=== PATIENT | female | born 1970 ===

== ENCOUNTER 2017-02-06 12:52 | Emergency (ER) | payer BC ==
[2017-02-06 13:42] VITALS: BP 140/75
--- NOTE | 2017-02-06 14:02 | UC ---
Skin Complaint HPI - HPI Summary HPI Summary: The patient is here today for: 1. Facial skin lesion: Onset: 8 days ago. Palliative/provocative: Touching makes it painful. Quality: Itchy, soreness. Region: Inferior chin. Severity: 210 Time: Constant. Associated symptoms: Event: She stated about 8 days ago, she had a pimple. She scratched it with her nail and it popped and white pus came out. She cleaned it with alcohol. Scabbing occurred and since there, she had a worsening of the sore--getting bigger and more sore and now more inferior to the lesion, there is soreness. * - History of Current Complaint Chief Complaint: UCSkin Time Seen by Provider: 02/06/17 13:50 Stated Complaint: SKIN COMPLAINT-FACIAL Hx Obtained From: Patient Hx Last Menstrual Period: 01/26/17 - Allergy/Home Medications Allergies/Adverse Reactions: Allergies Allergy/AdvReac Type Severity Reaction Status Date / Time No Known Allergies Allergy Verified 02/06/17 13:42 Review of Systems Constitutional: Negative Skin: Rash Eyes: Negative ENT: Negative Respiratory: Negative Cardiovascular: Negative Gastrointestinal: Negative Genitourinary: Negative All Other Systems Reviewed And Are Negative: Yes PMH/Surg Hx/FS Hx/Imm Hx Previously Healthy: Yes - Surgical History Surgical History: Yes Surgery Procedure, Year, and Place: gallbladder - Family History Known Family History: Negative: Hypertension, Diabetes - Social History Occupation: Employed Full-time Alcohol Use: Rare Substance Use Type: None Smoking Status (MU): Never Smoked Tobacco Physical Exam Triage Information Reviewed: Yes Appearance: Well-Appearing, No Pain Distress, Well-Nourished Vital Signs: Initial Vital Signs Temp 99 F 02/06/17 13:35 Pulse 83 02/06/17 13:35 Resp 14 02/06/17 13:35 BP 140/75 02/06/17 13:35 Pulse Ox 96 02/06/17 13:35 Vital Signs Reviewed: Yes Eyes: Positive: Conjunctiva Clear. Negative: Discharge ENT: Positive: Hearing grossly normal. Negative: Pharyngeal erythema, Nasal congestion, Nasal drainage, TM bulging, TM dull, TM red, Tonsillar swelling, Tonsillar exudate Dental: Negative: Gross Decay/Caries @, Dental Fracture @ Neck: Positive: Supple, Nontender, No Lymphadenopathy. Negative: Nuchal Rigidity Respiratory: Positive: Chest non-tender, Lungs clear, No respiratory distress, No accessory muscle use. Negative: Crackles, Wheezing Cardiovascular: Positive: RRR, No Murmur Abdomen Description: Positive: Nontender, No Organomegaly, Soft. Negative: Distended, Guarding Musculoskeletal: Positive: Strength Intact, ROM Intact Neurological: Positive: Alert, Muscle Tone Normal Psychological: Positive: Age Appropriate Behavior, Consolable Skin: Positive: rashes - She had a 1 to 1.5 cm erythematous lesion with some small bullae? Vesicles? Course/Dx - Course Course Of Treatment: Patient was told that I don't know if the lesion is impetigious or herpetic. Will do both bacterial and viral culture. Will treat for bacterial including MRSA. She is to come back in two days when I am here for re-evaluation. - Diagnoses Provider Diagnoses: Skin lesion (impetigo vs herpetic). Discharge - Discharge Plan Condition: Stable Disposition: HOME Patient Education Materials: Impetigo (ED) Additional Instructions: Please come back to see me in two days (Thursday) after 2:30 PM for re- evaluation.
[2017-02-09 21:53] LABS: HS/VZ Source SKIN ON CHON; Varicella Zoster Result Negative (Negative); Varicella Zoster Source SKIN ON CHIN
== END 2017-02-06 14:27 | disposition home or self-care (01) ==
LOC: UCCORT 12:52
DX: L98.9 Disorder of the skin and subcutaneous tissue, unspecified (principal)
CPT/HCPCS: 87070; 87205; 87252; 87529; 87798; 99202; G0463

== ENCOUNTER 2017-02-08 14:19 | Emergency (ER) | payer BC ==
[2017-02-08 15:30] VITALS: BP 119/75
--- NOTE | 2017-02-08 15:30 | UC ---
Skin Complaint HPI - HPI Summary HPI Summary: The patient comes in today for: 1. Skin lesion Onset: 10 days ago. Palliative/provocative: Antibiotics help. Quality: Soreness Region: Chin Severity: 09/09 Time: Constant. Associated symptoms: The patient was seen today days ago. The skin lesion appeared to be possibly impetigo vs herpes simplex, and/or cellulitis. She was not put on any antiviral medication--only cephalexin/Bactrim. She was asked to be re- evaluated in 2 days to see how well she was doing. She was not able to see her primary care provider on today (Thursday) so she came in to see me. She states that the lesion is less sore and that the lymph node (sub mental) is less tender. She is tolerating the two antibiotics. * - History of Current Complaint Time Seen by Provider: 02/08/17 15:04 Stated Complaint: RE-CHECK IMPETIGO Hx Obtained From: Patient Hx Last Menstrual Period: 01/26/17 - Allergy/Home Medications Allergies/Adverse Reactions: Allergies Allergy/AdvReac Type Severity Reaction Status Date / Time No Known Allergies Allergy Verified 02/08/17 15:30 Review of Systems Constitutional: Negative Skin: Rash Eyes: Negative ENT: Negative Cardiovascular: Negative Gastrointestinal: Negative All Other Systems Reviewed And Are Negative: Yes PMH/Surg Hx/FS Hx/Imm Hx Previously Healthy: Yes - Surgical History Surgical History: Yes Surgery Procedure, Year, and Place: gallbladder - Family History Known Family History: Negative: Hypertension, Diabetes - Social History Alcohol Use: Rare Substance Use Type: None Smoking Status (MU): Never Smoked Tobacco Physical Exam Triage Information Reviewed: Yes Appearance: Well-Appearing, No Pain Distress, Well-Nourished Vital Signs Reviewed: Yes Eyes: Positive: Conjunctiva Clear. Negative: Discharge ENT: Positive: Hearing grossly normal. Negative: Pharyngeal erythema, Nasal congestion, Nasal drainage, TM bulging, TM dull, TM red, Tonsillar swelling, Tonsillar exudate Dental: Negative: Gross Decay/Caries @, Dental Fracture @ Neck: Positive: Supple, Nontender, No Lymphadenopathy. Negative: Nuchal Rigidity Respiratory: Positive: Lungs clear, No respiratory distress, No accessory muscle use. Negative: Crackles, Wheezing Cardiovascular: Positive: RRR, No Murmur Abdomen Description: Positive: Nontender, No Organomegaly, Soft. Negative: Distended, Guarding Musculoskeletal: Positive: Strength Intact, ROM Intact, No Edema Neurological: Positive: Alert, Muscle Tone Normal, Fatigued Psychological: Positive: Age Appropriate Behavior, Consolable - The submental skin lesion was less red. The red area has not gotten any larger. The submental node and area was less tender. No new bullae. Diagnostics - Laboratory Diagnostic Studies Completed/Ordered: Culture results: Pending. Course/Dx - Differential Diagnoses - Skin Complaint Differential Diagnoses: Cellulitis - Diagnoses Provider Diagnoses: Impetigo. Discharge - Discharge Plan Condition: Stable Disposition: HOME Patient Education Materials: Impetigo (ED) Referrals: Non Staff,Doctor [Primary Care Provider] - If Needed (Please take the antibiotics as directed for the full 10 days. If you have any problems please be seen sooner. You should continue to improve. IF you continue to do well, you can just finish the antibiotics after the 10 day treatment and not be seen by your primary care provider or us. But, if you don't cpontinue to improve, please see us again.)
--- NOTE | 2017-02-10 09:17 | UC ---
Progress - Progress Note Progress Note: please call the pt. 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 could benefit from any antiviral medication she should cont. with the abx treatment since she could have 2ndary bacterial skin infection follow up with your pcp if not improving
== END 2017-02-08 15:43 | disposition home or self-care (01) ==
LOC: UCCORT 14:19
DX: L01.00 Impetigo, unspecified (principal)
CPT/HCPCS: 99211; G0463

== ENCOUNTER 2017-02-15 09:43 | Emergency (ER) | payer BC ==
[2017-02-15] MEDS ORDERED: Acetaminophen TAB* 325 MG PO ONE (12:19)
--- NOTE | 2017-02-15 12:44 | UC ---
Skin Complaint HPI - HPI Summary HPI Summary: pt presents with c/o diffuse erythematous, non pruritic rash that began over night. Pt is currently on the 8th day of taking PO keflex and Bactrim. Pt spent 8 hours yesterday outside in the sun and 80degree weather. Pt states that she was covered "from head to toe" but knows she got a sunburn on upper chest and upper back. Pt also reports generalized body aches, nausea, chills that began last night and are still current c/o. - History of Current Complaint Chief Complaint: UCSkin Time Seen by Provider: 02/15/17 12:06 Stated Complaint: SKIN COMPLAINT,NAUSEA (SUN BURN) Hx Obtained From: Patient Hx Last Menstrual Period: 01/26/17 ?: No Onset/Duration: Gradual Onset, Lasting Hours, Still Present Skin Exposure Onset/Duration: Hours Ago Timing: Constant Onset Severity: Mild Current Severity: Moderate Location: Generalized Character: Exposure to Heat Continuous, Redness Aggravating: Nothing Alleviating: Unknown Associated Signs & Symptoms: Positive: Nausea, Weakness, Fever, Chills, Rash Related History: Recent change in medication - Allergy/Home Medications Allergies/Adverse Reactions: Allergies Allergy/AdvReac Type Severity Reaction Status Date / Time No Known Allergies Allergy Verified 02/15/17 12:04 Review of Systems Constitutional: Fever, Chills, Fatigue Skin: Rash Eyes: Negative ENT: Negative Respiratory: Negative Cardiovascular: Negative Gastrointestinal: Negative Genitourinary: Negative Motor: Negative Neurovascular: Negative Musculoskeletal: Myalgia Neurological: Negative Psychological: Negative All Other Systems Reviewed And Are Negative: Yes PMH/Surg Hx/FS Hx/Imm Hx - Additional Past Medical History Additional PMH: Pt is currently being treated for skin abscess.with Bactrim and keflex Previously Healthy: Yes - Surgical History Surgical History: Yes Surgery Procedure, Year, and Place: gallbladder - Family History Known Family History: Negative: Hypertension, Diabetes - Social History Alcohol Use: Rare Substance Use Type: None Smoking Status (MU): Never Smoked Tobacco Physical Exam Triage Information Reviewed: Yes Appearance: Ill-Appearing Vital Signs: Initial Vital Signs Temp 102.3 F 02/15/17 11:57 Pulse 114 02/15/17 11:57 Resp 17 02/15/17 11:57 BP 131/75 02/15/17 11:57 Pulse Ox 100 02/15/17 11:57 Vital Signs Reviewed: Yes Eye Exam: Other Eyes: Positive: Other: - scleritis ENT Exam: Normal Neck exam: Normal, Other Neck: Positive: Nontender, No Lymphadenopathy Respiratory Exam: Normal Cardiovascular Exam: Normal Abdominal Exam: Normal Musculoskeletal Exam: Normal Neurological Exam: Normal Psychological Exam: Normal Skin Exam: Other - warm, red,balchable, erytheamtous, confluent rash on upper anterior chest and upper back. Pin prick, erythematous isra on upper extremities and lower extermities, Face: generalized erythema. Course/Dx - Course Course Of Treatment: The pateint first presented with fever of 102.4, she was given 650 mg Po tylenol and within 1 hour temperature remained at 102.2, I then ordered 800 mg PO Ibuprofen . within 20-30 minutes, the pt's fver was 99.3. I discussed with the patient that I could not find an obvious source for the cause of the fever. The Pt verbalized understanding and agreed to plan of care. I also discontinued the BActrim and keflex. - Differential Diagnoses - Skin Complaint Differential Diagnoses: Allergic Reaction, Dehydration, Heat Exhaustion, Heat Stroke, Gordon-Darryn Syndrome - Diagnoses Provider Diagnoses: Drug rash. Fever of unknown origin Discharge - Discharge Plan Condition: Stable Disposition: HOME Patient Education Materials: Fever in Adults (ED), Acute Rash (ED) Forms: *Work Release Referrals: Non Staff,Doctor [Primary Care Provider] - If Needed Additional Instructions: Please note that if you are unable to manage your fever with oral antipyretics or if your symptoms worsen, please seek care at the closest healthcare facility/ emergency room.
[2017-02-15] MEDS ORDERED: Ibuprofen TAB* 400 MG PO ONE (13:19)
[2017-02-15 14:01] VITALS: BP 113/72
== END 2017-02-15 14:10 | disposition home or self-care (01) ==
LOC: UCCORT 09:43
DX: T36.1X5A Adverse effect of cephalosporins and other beta-lactam antibiotics, initial encounter (principal); T37.0X5A Adverse effect of sulfonamides, initial encounter; L27.1 Localized skin eruption due to drugs and medicaments taken internally; R50.9 Fever, unspecified
CPT/HCPCS: 81003; 99212; A9270-GY; G0463

== ENCOUNTER 2017-09-07 16:17 | Emergency (ER) | payer BC ==
[2017-09-07 17:46] VITALS: BP 116/78
--- NOTE | 2017-09-07 18:04 | UC ---
HPI Wound/Suture Re-check - HPI Summary HPI Summary: Pt presents with request for suture removal. Pt had three sutures placed in right hand in webbing between third and 4th finger 1 week ago at [facility]. - History Of Current Complaint Stated Complaint: SUTURE REMOVAL Time Seen by Provider: 09/07/17 17:35 Hx Obtained From: Patient Hx Last Menstrual Period: LAST WEEK Onset/Duration: Sudden Onset Severity: Mild Pain Intensity: 0 Pain Scale Used: 0-10 Numeric - Allergies/Home Medications Allergies/Adverse Reactions: Allergies Allergy/AdvReac Type Severity Reaction Status Date / Time No Known Allergies Allergy Verified 09/07/17 17:44 Home Medications: Home Medications NK [No Home Medications Reported] 09/07/17 [History Confirmed 09/07/17] PMH/Surg Hx/FS Hx/Imm Hx Previously Healthy: Yes - Surgical History Surgical History: Yes Surgery Procedure, Year, and Place: gallbladder - Family History Known Family History: Negative: Hypertension, Diabetes - Social History Occupation: Employed Full-time Lives: With Family Alcohol Use: Rare Substance Use Type: None Smoking Status (MU): Never Smoked Tobacco Have You Smoked in the Last Year: No - Immunization History Most Recent Influenza Vaccination: NOT CURRENT Review of Systems Constitutional: Negative - sutures intact, edges well aproximated, no tenderness , discharge, erythema, or fever. Skin: Other Eyes: Negative ENT: Negative Respiratory: Negative Cardiovascular: Negative Gastrointestinal: Negative Genitourinary: Negative Motor: Negative Neurovascular: Negative Musculoskeletal: Negative Neurological: Negative Psychological: Negative Is Patient Immunocompromised?: No All Other Systems Reviewed And Are Negative: Yes Physical Exam Triage Information Reviewed: Yes Appearance: Well-Appearing Vital Signs: Initial Vital Signs Temp 98.0 F 09/07/17 17:40 Pulse 70 09/07/17 17:40 Resp 18 09/07/17 17:40 BP 116/78 09/07/17 17:40 Pulse Ox 98 09/07/17 17:40 Vital Signs Reviewed: Yes Eye Exam: Normal ENT Exam: Normal Dental Exam: Normal Neck exam: Normal Respiratory Exam: Normal Musculoskeletal Exam: Normal Neurological Exam: Normal Psychological Exam: Normal Skin Exam: Other - healing wound, sutures in tact Course/Dx - Course Course Of Treatment: three sutures removed, pt tolerated well. no s/sx of infection. - Differential Dx - Laceration/Wound Differential Diagnoses: Suture Removal Provider Diagnoses: suture removal. healing wound Discharge - Discharge Plan Condition: Stable Disposition: HOME Patient Education Materials: Stitches Removal (ED) Referrals: No Primary Care Phys,NOPCP [Primary Care Provider] - If Needed
== END 2017-09-07 17:50 | disposition home or self-care (01) ==
LOC: UCCORT 16:17
DX: S61.411D Laceration without foreign body of right hand, subsequent encounter (principal); W45.8XXD Other foreign body or object entering through skin, subsequent encounter; Z90.49 Acquired absence of other specified parts of digestive tract
CPT/HCPCS: 99212; G0463